=== PATIENT | male | born 1945 | race Caucasian/White ===

== ENCOUNTER → 2016-11-01 | Outpatient (CLI) | payer OTHER | LOC: FIMAGING 09:04 | PROVIDERS: ATTEND Internal Medicine Gastroenterology | DX: R94.5 Abnormal results of liver function studies (principal) ==

== ENCOUNTER → 2017-12-08 | Outpatient (CLI) | payer OTHER | LOC: FIMAGING 10:35 | PROVIDERS: ATTEND Internal Medicine Hematology & Oncology | DX: Z13.820 Encounter for screening for osteoporosis (principal); M81.0 Age-related osteoporosis without current pathological fracture; E03.9 Hypothyroidism, unspecified; Z85.46 Personal history of malignant neoplasm of prostate ==

== ENCOUNTER 2018-03-20 15:49 | Emergency (ER) | payer OTHER ==
[2018-03-20] MEDS ORDERED: VANCOMYCIN 1 GM in NS 250 ML IV ONE (16:35)
[2018-03-20] MEDS ORDERED: CEPHALEXIN 500MG PREPACK#4 BTL TAKEHOME ONE (16:36)
[2018-03-20] MEDS ORDERED: SULFAMET/TMP DS PREPACK#2 BTL TAKEHOME ONE (16:36)
--- NOTE | 2018-03-20 16:41 | EDPHY ---
H & P Stated Complaint: redness and swelling right leg for 6 days-pt. fell Time Seen by Provider: 03/20/18 16:04 HPI/ROS: Chief Complaint: Leg infection HPI: 72-year-old male with a history of CVA in the past is presenting with a leg infection after he sustained an injury 1 week ago. Patient states he fell and sustained a laceration to his right leg. He has had increasing redness and swelling for the last 2 days. 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 No fevers or chills. He does have decreased sensation in that leg secondary to his CVA in the past. His looked at his leg notice significant purulent discharge from the wound and redness yesterday. She states that the leg is still red but does seem improved compared to yesterday. No chest pain or shortness of breath. Denies any other injuries. ROS: 10 systems were reviewed and were negative except those elements noted in the HPI. PMH: CVA, Morris cyst, hypertension, seizure disorder Social History: No smoking, no alcohol, no recreational drug use Family History: non-contributory Physical Exam: Gen: Awake, Alert, No Distress HEENT: Nose: no rhinorrhea Eyes: PERRLA, EOMI Mouth: Moist mucosa Neck: Supple, no JVD Chest: nontender, lungs clear to auscultation Heart: S1, S2 normal, no murmur Abd: Soft, non-tender, no guarding Back: no CVA tenderness, no midline tenderness Ext: Left leg has 1+ edema, right leg is 2+ pitting edema. There is a large abrasion approximately 4 cm vertically over his anterior tibia. There is an area of surrounding erythema approximately 15 cm x 20 cm with the central area of 5 cm x 8 cm being more intense. Is mildly warm to touch. There is a small area of secondary abrasion approximately on the upper lema with mild surrounding erythema approximately 3 cm. There is crusting over the abrasions, no purulent discharge. The erythema is not circumferential. Skin: no rash Neuro: CN II-XII intact, Sensation grossly intact, Strength 5/5 in bilateral upper and lower extremities - Personal History Current Tetanus Diphtheria and Acellular Pertussis (TDAP): Yes Tetanus Vaccine Date: Unknown - Medical/Surgical History Hx Asthma: No Hx Chronic Respiratory Disease: No Hx Diabetes: No Hx Cardiac Disease: No Hx Renal Disease: No Hx Cirrhosis: No Hx Alcoholism: No Hx HIV/AIDS: No Hx Splenectomy or Spleen Trauma: No Other PMH: CVA 2004, R SIDE WEAKNESS, APHASIA, PROSTATE CANCER 2012, BREAST CANCER. hernia repair,hypertension,hypothyroid,seizures,Bakers cyst right leg 2 months ago - Social History Smoking Status: Never smoked Constitutional: Initial Vital Signs Temperature (C) 36.7 C 03/20/18 16:06 Heart Rate 64 03/20/18 16:06 Respiratory Rate 18 03/20/18 16:06 Blood Pressure 140/92 H 03/20/18 16:06 O2 Sat (%) 95 03/20/18 16:06 O2 Delivery Mode Room Air Allergies/Adverse Reactions: No Known Allergies Allergy (Verified 03/20/18 16:05) Home Medications: Medication Instructions Recorded Donepezil HCl [Aricept 5 MG (RX)] 15 mg PO DAILY 03/12/12 Levothyroxine [Synthroid 100 mcg 100 mcg PO DAILY06 03/12/12 (RX)] Pregabalin [Lyrica 50mg (RX)] 100 mg PO HS 03/12/12 Simvastatin [Zocor 20 mg (RX)] 20 mg PO HS 03/12/12 Valsartan [Diovan 160MG (RX)] 160 mg PO DAILY 03/12/12 lamoTRIgine [LamICTAL 100 MG (RX)] 300 mg PO TID 03/12/12 levETIRAcetam [Keppra 250 mg (RX)] 250 mg PO BID 03/12/12 Diazepam 06/05/13 LUPRON DEPOT 03/20/18 Medical Decision Making ED Course/Re-evaluation: 72-year-old male with a wound infection with cellulitis on his right leg. He does not wish to stay in the hospital. His does state that it does look better than it did yesterday without any treatment. Plan will be to give him a single dose of vancomycin here. Will start him on oral Keflex and Bactrim. I am working tomorrow and I have instructed them to return in 24 hr for recheck by me even if it is improving. If the redness spreads outside of the marked area they will return sooner for and admission to the hospital. I think that given the fact that the redness is improving compared to yesterday without treatment this is a reasonable approach at this time. He has chronic swelling in that leg. He has had extensive workup for this within the last 2 months with no evidence of DVT. I do not believe he has a DVT at this time. Will attempt for conservative outpatient treatment but if necessary he will return for hospital admission. Departure - Departure Disposition: Home, Routine, Self-Care Clinical Impression: Wound infection, Cellulitis Condition: Good Instructions: Wound Infection (ED), Cellulitis (ED), Sulfamethoxazole/ Trimethoprim (By mouth), Cephalexin (By mouth) Additional Instructions: Return to the emergency department tomorrow after 3:00 p.m. for wound recheck by Dr. Ceron. Take the Keflex 4 times a day and the Bactrim twice a day. Return to the emergency department sooner if the redness spreads outside of the marked area, for increasing pain, fevers, or any other concerns. Referrals: Lolita Gonsalez MD [Primary Care Provider] - As per Instructions
[2018-03-20 19:11] VITALS: BP 124/75
== END 2018-03-20 18:55 | disposition home or self-care (01) ==
LOC: CED 15:49
DX: L08.9 Local infection of the skin and subcutaneous tissue, unspecified (principal); L03.115 Cellulitis of right lower limb; I10 Essential (primary) hypertension
CPT/HCPCS: 96365; 99284; J3370

== ENCOUNTER 2018-03-21 16:29 | Emergency (ER) | payer OTHER ==
[2018-03-21 16:40] VITALS: BP 149/91
--- NOTE | 2018-03-21 16:41 | EDPHY ---
H & P Time Seen by Provider: 03/21/18 16:37 HPI/ROS: Chief Complaint: Cellulitis check HPI: 72-year-old male that I saw in the emergency department yesterday with cellulitis to his right leg. Patient has a history of CVA in the past. He had a fall week ago and sustained a laceration to his right lema. Ice I am yesterday with a cellulitis. Patient also has a known rogers cyst and swelling in that leg. Patient was given IV antibiotics by me yesterday as been taking Keflex and Bactrim. He states that he feels it is getting much better. No fevers or chills. No pain. ROS: 10 systems were reviewed and were negative except those elements noted in the HPI. PMH: CVA, hypertension, seizure disorder Social History: No smoking, no alcohol, no recreational drug use Family History: non-contributory Physical Exam: General: Awake, alert, no acute distress Right leg: Patient has a healing cellulitis of his right leg. The erythema is decreased significantly compared to yesterday. There is no purulent discharge. Calf continued to be doing swollen with 2+ pitting edema but this is also improved. Capillary refills less than 3 sec. - Personal History Tetanus Vaccine Date: Unknown - Medical/Surgical History Hx Asthma: No Hx Chronic Respiratory Disease: No Hx Diabetes: No Hx Cardiac Disease: No Hx Renal Disease: No Hx Cirrhosis: No Hx Alcoholism: No Hx HIV/AIDS: No Hx Splenectomy or Spleen Trauma: No Other PMH: CVA 2004, R SIDE WEAKNESS, APHASIA, PROSTATE CANCER 2013, BREAST CANCER. hernia repair,hypertension,hypothyroid,seizures,Bakers cyst right leg 2 months ago - Social History Smoking Status: Never smoked Allergies/Adverse Reactions: No Known Allergies Allergy (Verified 03/21/18 16:37) Home Medications: Medication Instructions Recorded Donepezil HCl [Aricept 5 MG (RX)] 15 mg PO DAILY 03/12/12 Levothyroxine [Synthroid 100 mcg 100 mcg PO DAILY06 03/12/12 (RX)] Pregabalin [Lyrica 50mg (RX)] 100 mg PO HS 03/12/12 Simvastatin [Zocor 20 mg (RX)] 20 mg PO HS 03/12/12 Valsartan [Diovan 160MG (RX)] 160 mg PO DAILY 03/12/12 lamoTRIgine [LamICTAL 100 MG (RX)] 300 mg PO TID 03/12/12 levETIRAcetam [Keppra 250 mg (RX)] 250 mg PO BID 03/12/12 Diazepam 06/05/13 LUPRON DEPOT 03/20/18 Cephalexin [Keflex (*)] 500 mg PO Q6H #40 cap 03/21/18 Sulfamethox/Tmp 800/160 mg 1 tab PO BID #20 tab 03/21/18 [Bactrim Ds] Medical Decision Making ED Course/Re-evaluation: 72-year-old male with healing cellulitis. His cellulitis looks significantly improved compared to yesterday. Plan will be to continue with oral Keflex and Bactrim. He will follow up with primary care physician in 2-3 days for recheck. He will return for any concerns. Departure - Departure Disposition: Home, Routine, Self-Care Clinical Impression: Cellulitis Condition: Good Instructions: Cellulitis (ED) Additional Instructions: Please take her full course of antibiotics. Follow up with primary care physician in 2-3 days for recheck. Return to the emergency department for worsening redness, swelling, fevers, chills, pain, or any other concerns. Referrals: Lolita Gonsalez MD [Primary Care Provider] - As per Instructions Prescriptions: Cephalexin [Keflex (*)] 500 mg PO Q6H #40 cap Sulfamethox/Tmp 800/160 mg [Bactrim Ds] 1 tab PO BID #20 tab
== END 2018-03-21 16:48 | disposition home or self-care (01) ==
LOC: CED 16:29
DX: L03.115 Cellulitis of right lower limb (principal); L08.9 Local infection of the skin and subcutaneous tissue, unspecified; I10 Essential (primary) hypertension; E03.9 Hypothyroidism, unspecified; Z86.73 Personal history of transient ischemic attack (TIA), and cerebral infarction without residual deficits; Z85.46 Personal history of malignant neoplasm of prostate; Z85.3 Personal history of malignant neoplasm of breast
CPT/HCPCS: 99284-ER

== ENCOUNTER 2018-04-14 14:33 | Inpatient (IN) | payer OTHER ==
[2018-04-14] MEDS ORDERED: SENNOSIDES/DOCUSATE SODIUM TAB PO PRN (16:03)
[2018-04-14] MEDS ORDERED: MAG HYDROX/AL HYDROX/SIMETH 30 ML UDCUP PO PRN (16:03)
[2018-04-14] MEDS ORDERED: BISACODYL 10 MG SUPP PR PRN (16:03)
[2018-04-14] MEDS ORDERED: METHOCARBAMOL 750 MG TAB PO PRN (16:10)
[2018-04-14] MEDS ORDERED: POLYETHYLENE GLYCOL 3350 17 GM PKT PO PRN (16:10)
[2018-04-14] MEDS ORDERED: PREGABALIN 50 MG CAP PO PRN (16:10)
[2018-04-14] MEDS: CEPHALEXIN 500 MG CAP PO SCH ×2 (16:56→20:58)
[2018-04-14] MEDS: lamoTRIgine 100 MG TAB PO SCH (17:49)
--- NOTE | 2018-04-14 18:56 | GHP ---
[f rep st] HISTORY AND PHYSICAL POSTADMISSION PHYSICIAN EVALUATION AND REHABILITATION TREATMENT PLAN DATE OF ADMISSION: 04/14/2018 TIME OF EVALUATION: 4 p.m. REFERRING FACILITY: [facility]. REFERRING PHYSICIAN: Bhavik Brady MD IMPAIRMENT GROUP: 14.2. DATE OF ONSET: 04/08/2018. CONSULTING PHYSICIAN: Orthopedic Surgery, Plastic Surgery. PRIMARY CARE PHYSICIAN: Lolita Gonsalez MD. Neurologist: Charly Ragsdale MD. Oncologist: Danny Garcia MD. REHABILITATION DIAGNOSIS: Multiple trauma, severely displaced left humeral neck fracture, mildly displaced left greater tuberosity fracture, left zygomaticomaxillary complex fracture, nasal fracture, lateral orbital wall fracture. DATE OF SURGERY: 04/09/2018, shoulder arthroplasty, ORIF facial fractures. HISTORY OF PRESENT ILLNESS: The patient is a 73-year-old originally right- handed, now left-handed gentleman with a remote history of a left CVA, right hemiparesis, ataxia, and subsequent seizure disorder. He was in his usual state of health until 04/08/2018, when at home he fell down 2 steps, landing on his face and left shoulder. He had immediate pain. He was taken to [facility] ER where he was transferred to [facility] for definitive treatment. There was no associated loss of consciousness, headache, nausea, or vomiting. No period of posttraumatic amnesia. He was admitted to [facility], stabilized and brought to the OR for the shoulder arthroplasty and ORIF of the facial fractures on 04/11/2018. Surgery was performed by Bhavik Leigh MD. Acute care hospital course was otherwise uneventful. Multiple studies were performed on day of admission including facial CT showin. Acute fractures of the anterior, medial, and lateral garcia of the left maxillary sinus with associated hemorrhagic fluid within the sinus. 2. Mildly depressed left inferior orbital wall fracture without evidence for inferior rectus muscle entrapment. Associated air tracking into the extraconal space of the left orbit. 3. Mildly displaced fracture of the left lateral orbital wall and nondisplaced fracture of the left side zygomatic arch. 4. Nasal bone fractures with rightward displacement of anterior fragments. Angulation deformity of the posterior aspect of the nasal septum. Could be either acute fracture or developmental. 5. No evidence for injury to the soft tissue structures of the orbits. 6. Moderate cerebral atrophy and large area of chronic volume loss in the left temporal lobe. Right-sided ventricular shunt catheter noted. Head CT without contrast 04/08/2018 showed: 1. No acute intracranial abnormality. 2. Right parietooccipital ventricular peritoneal shunt catheter. No ventriculomegaly. 3. Old left parietotemporal injury. Probably old area of infarction. 4. Extensive multiple facial fractures as above. Chest x-ray 04/08/2018: No acute disease. CTA head and neck 04/08/2018: 1. Unremarkable intracranial CT angiogram. 2. Low-grade extracranial atherosclerotic disease without evidence of hemodynamically significant stenosis. 3. Multiple left-sided facial fractures. 4. Remote left temporoparietal injury. 5. Right parietooccipital approach. Ventricular peritoneal shunt. Cervical spine 04/08/2018: Negative for fracture, subluxation. Multilevel degenerative changes. Pelvis 04/08/2018: Negative for fracture Screening bilateral lower extremity Doppler ultrasound: Negative for DVT. On admission, left shoulder films showed very dislocated left humeral neck and mildly dislocated left greater tuberosity. Chest x-ray followup to 04/13/2018, showed no evidence of consolidation, pneumonia. Trace left pleural fluid. No pneumothorax. Normal cardiomediastinal silhouette. Postop left shoulder 04/10/2018, showed status post glenohumeral arthroplasty, hardware in good position, alignment is anatomical. PRECAUTIONS: Fall risk, seizure risk, ortho risk, DVT. ACTIVE COMORBIDITIES: Tier 3: Right hemiparesis. PAST MEDICAL HISTORY: Left hemisphere CVA in 2004. A few months later he had a 2nd event. This was complicated and required ventriculoperitoneal shunting. He developed seizure disorder. He is followed by Dr. Ragsdale, Neurology. Hypothyroidism, dyslipidemia, glaucoma, cataract, bilateral breast cancer. More recent diagnosis: Prostate cancer followed by Dr. Garcia, PAST SURGICAL HISTORY: Remote hernia repair, ventriculoperitoneal shunt in 2004 , bilateral mastectomy. PREHOSPITAL MEDICATIONS: Atorvastatin 10 mg p.o. daily, brimonidine 0.2% 1 drop each eye b.i.d., Lamictal 300 mg p.o. twice a day with meals, 150 mg p.o. at noon, latanoprost 0.005% 1 drop each eye q.h.s., levetiracetam 1750 mg p.o. b.i.d., levothyroxine 100 mcg p.o. daily, Lyrica 50 mg p.o. q.h.s. ADMISSION MEDICATIONS: Continue all hospital medications as described above, and, in addition, acetaminophen 650 mg p.o. q.4 hours p.r.n., Dulcolax suppository p.r.n., Keflex 500 mg p.o. q.6 hours, recommended on 04/12 for 6 more days, Lovenox 30 mg subcu b.i.d., magnesium hydroxide 30 cc p.o. q.6 hours p.r.n., methocarbamol 750 mg p.o. q.8 hours p.r.n., oxycodone IR 5-10 mg p.o. q.4 hours p.r.n., polyethylene glycol 17 g p.o. daily p.r.n., Senokot 1 p.o. daily. ALLERGIES: NKDA. FAMILY HISTORY: Noncontributory. PSYCHOSOCIAL HISTORY: The patient is , lives with his Laura in [place]. 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 Negative history of tobacco or ETOH. REVIEW OF SYSTEMS: A 14-point review negative. Pertinent negatives include denying headache. There is no history of loss of consciousness, [employer], and he has full recall of the accident. HEENT: No change in hearing, tinnitus, otorrhea. No obvious visual changes, blurred or double vision, trouble tracking. No eye pain, eye strain. No change in sense of smell or taste. No rhinorrhea. No dysphagia. RESPIRATORY: No chest pain, shortness of breath, cough. GI: Negative. No reported seizures throughout his hospitalization. Sleep has been variable. Appetite is poor. Pain is well controlled. Current function: Consistent with preadmission report. EXAMINATION: VITAL SIGNS: BP 109/68, P 70, R 18, O2 sat 94%, T36.6. GENERAL: The patient is well-developed, well-nourished and quite pleasant 73- year-old gentleman, in no acute distress. He currently denies any significant pain. He is oriented x3. Has a mild to moderate asphasia and moderate dysarthria, but is intelligible. He is in good spirits, good sense of humor. Insight and higher level reasoning are grossly intact. HEENT: Clear evidence of trauma with residual ecchymosis and mild swelling greater on the left than the right. Some of that likely postoperative. He has a nasal splint in place. PERRLA. L sclera discolored. Extraocular movements are not full, but saccadic and pursuit movements are smooth. No gross field cuts. Facies grossly asymmetric with a mild left facial droop, query old versus new. NECK: Full range of motion. CHEST: Clear to auscultation at the bases. CARDIOVASCULAR: Regular rhythm and rate. ABDOMEN: Nondistended and nondistended. Normoactive bowel sounds. Bruising consistent with subq anticoagulants. SKIN: Warm, dry. Posttraumatic changes in the face and left shoulder. Left hand is cold relative to the right hand, but neurovascular status otherwise intact. He has abrasions on the right calf consistent with recent history of cellulitis status post fall, mostly resolved. MUSCULOSKELETAL: Left upper extremity in a postsurgical sling/shoulder immobilizer. Surgical dressing remains in place. Some associated ecchymosis. Very restricted range of motion. NEUROLOGIC: Right hemiparesis with primary ataxia greater than strenth deficits. Strength testing is in the 4/5 range. Distal motor sensory, vascular intact in the left hand, though the hand is somewhat cold and edematous. IMPRESSION: 1. Multiple trauma secondary to fall at home 04/08/2018. 2. Complex, severely displaced left humeral neck fracture, now status post left glenohumeral arthroplasty. Postop films show good anatomical alignment and hardware placement. Current pain tolerance good. Activity markedly limited. 3. Remote history of left hemisphere cerebrovascular accident, left ventriculoperitoneal shunt, right hemiparesis, altered mobility. 4. Post stroke aphasia, dysarthria, mild to moderate cognitive impairment including memory deficits. Considered at baseline. 5. Complex left facial and nasal fractures, orbital fractures. No complications. Status post ORIF. 6. Pain management: Continue p.r.n. narcotic, Tylenol, muscle relaxants. 7. Deep venous thrombosis prophylaxis. Moderate to high risk. Continue enoxaparin 30 mg b.i.d. 8. Bowel and bladder issues: None currently. Monitor for narcotic-induced constipation. 9. Skin: He is scheduled for a followup with orthopedist this week. Monitor for skin healing, wound healing, intact neurovascular status status/post shoulder arthroplasty. 10. Glaucoma: Continue current medication. 11. Dyslipidemia: Continue atorvastatin. 12. Hypothyroidism: Continue levothyroxine. 13. Cataract. 14. Prostate cancer: Continue Lupron therapy per Dr. Garcia. 15. Seizure disorder: Continue Keppra and Lamictal as prescribed. In addition , patient takes p.r.n. liquid Dilantin at initial suspicion of seizure prodrome. Consider consulting Dr. Ragsdale for evaluation. 16. Breast cancer status post bilateral mastectomy. No current issues. PLAN: Admit to inpatient rehab, initiate multidisciplinary therapies, RN, PT/OT , speech, social work. Anticipated length of stay7-14 days, with emphasis on discharge to home once adequate mobility, self-care, family education, pain management, etc, are achieved. /[id number]/MODL MTDD
[2018-04-14] MEDS: ACETAMINOPHEN 325 MG TAB PO PRN (20:57)
[2018-04-14] MEDS: levETIRAcetam 500 MG TAB PO SCH (20:58)
[2018-04-14] MEDS: BRIMONIDINE 0.2% 5 ML OPHT.BTL EACHEYE SCH (20:58)
[2018-04-14] MEDS: LATANOPROST 0.005% 2.5 ML OPHT DROPS EACHEYE SCH (20:59)
[2018-04-14] MEDS: ENOXAPARIN 30 MG/0.3 ML SYR SC SCH (20:59)
[2018-04-14] MEDS: CHLORHEXIDINE GLUCONATE 15 ML UDL PO SCH (22:36)
[2018-04-14] MEDS: levETIRAcetam 250 MG TAB PO SCH (22:37)
[2018-04-15] MEDS: LEVOTHYROXINE 100 MCG TAB PO SCH (04:57)
[2018-04-15] MEDS: CEPHALEXIN 500 MG CAP PO SCH ×4 (04:57→21:24)
[2018-04-15] MEDS: ATORVASTATIN CALCIUM 10 MG TAB PO SCH (08:26)
[2018-04-15] MEDS: lamoTRIgine 100 MG TAB PO SCH ×3 (08:26→17:30)
[2018-04-15] MEDS: levETIRAcetam 250 MG TAB PO SCH ×2 (08:26→20:37)
[2018-04-15] MEDS: levETIRAcetam 500 MG TAB PO SCH ×2 (08:26→20:37)
[2018-04-15] MEDS: ENOXAPARIN 30 MG/0.3 ML SYR SC SCH ×2 (08:26→20:37)
[2018-04-15] MEDS: BRIMONIDINE 0.2% 5 ML OPHT.BTL EACHEYE SCH ×2 (08:27→21:24)
[2018-04-15] MEDS: SENNOSIDES/DOCUSATE SODIUM TAB PO SCH (08:27)
[2018-04-15] MEDS: CHLORHEXIDINE GLUCONATE 15 ML UDL PO SCH ×2 (08:27→20:36)
[2018-04-15] MEDS ORDERED: DIAZEPAM 1 MG/ML PO PRN (12:21)
--- NOTE | 2018-04-15 12:36 | SOAPPROG ---
SOAP Progress Note Assessment/Plan: Assessment: 73 YO gentleman with multiple trauma 1. Multiple trauma secondary to fall at home 04/08/2018. 2. Complex, severely displaced left humeral neck fracture, now status post left glenohumeral arthroplasty. Postop films show good anatomical alignment and hardware placement. Current pain tolerance good. Activity markedly limited. Adequate pain control. Cont with immobilizer. Cont PT/OT eval and treat with goal of increasing mobility, capacity for self cares, assistive devices, and family training. 3. Remote history of left hemisphere cerebrovascular accident, left ventriculoperitoneal shunt, right hemiparesis, altered mobility. 4. Post stroke aphasia, dysarthria, mild to moderate cognitive impairment including memory deficits. Considered at baseline. 5. Complex left facial trauma (Zygomaticamaxillary, Nasal and orbital Fx's) No complications. Status post ORIF. 6. Pain management: adequate control. Continue p.r.n. narcotic, Tylenol, muscle relaxants. 7. Deep venous thrombosis prophylaxis. Moderate to high risk. Continue enoxaparin 30 mg b.i.d. 8. Bowel and bladder issues: None currently. Monitor for narcotic-induced constipation. 9. Skin: He is scheduled for a followup with orthopedist this week. Monitor for skin healing, wound healing, intact neurovascular status status/post shoulder arthroplasty. 10. Glaucoma: Continue current medication. 11. Dyslipidemia: Continue atorvastatin. 12. Hypothyroidism: Continue levothyroxine. 13. Cataract. 14. Prostate cancer: Continue Lupron therapy per Dr. Garcia. 15. Seizure disorder: Continue Keppra and Lamictal as prescribed. In addition , patient takes p.r.n. liquid Dilantin at initial suspicion of seizure prodrome. Consider consulting Dr. Ragsdale for evaluation. 16. Breast cancer status post bilateral mastectomy. No current issues. 17. Sleep: problematic last night 2/2 inability to turn (neither shoulder can assist in bed mobility). Will request the nurses turn him Q 2hrs. PLAN: Cont multidisciplinary therapies, RN, PT/OT, speech, social work. Anticipated length of stay7-14 days, with emphasis on discharge to home once adequate mobility, self-care, family education, pain management, etc, are achieved. 04/15/18 12:42 Subjective: IN good spirits Slept poorly last night PRN medication requested by turned out to be Diazepam liquid, not Dilantin. This is non formulary, but will be made available to pt, 1-2 cc PRN onset of seizure prodrome/anxiety NO F/C/CP/SOB/N/V/D/C Objective: Vital Signs Temp Pulse Resp BP Pulse Ox 36.5 C 74 18 124/76 H 94 04/14/18 20:00 04/15/18 05:10 04/15/18 05:10 04/15/18 05:10 04/15/18 05:10 04/14/18 04/15/18 04/16/18 05:59 05:59 05:59 Intake Total 440 100 Output Total 1025 Balance -585 100 Physical Exam - Physical Exam General Appearance: alert, no apparent distress Neck: supple Respiratory: lungs clear Cardiac/Chest: regular rate, rhythm Abdomen: normal bowel sounds, soft Skin: normal color, warm/dry (L hand still cooler) Extremities: swelling (L hand, motor sensory intact), No pedal edema, No calf tenderness Neuro/Psych: alert, normal mood/affect, facial droop, motor weakness, sensory deficit, cognition abnormalities, speech abnormalities, other (no acute changes) ICD10 Worksheet Patient Problems: Problems Problem Status Onset Essential hypertension Active Seizure disorder Active
[2018-04-15] MEDS ORDERED: ZOLPIDEM TARTRATE 5 MG TAB PO PRN (14:22)
[2018-04-15] MEDS: ACETAMINOPHEN 325 MG TAB PO PRN (21:23)
[2018-04-15] MEDS: LATANOPROST 0.005% 2.5 ML OPHT DROPS EACHEYE SCH (21:25)
[2018-04-16] MEDS: ACETAMINOPHEN 325 MG TAB PO PRN ×2 (03:16→22:06)
[2018-04-16] MEDS: LEVOTHYROXINE 100 MCG TAB PO SCH (05:01)
[2018-04-16] MEDS: CEPHALEXIN 500 MG CAP PO SCH ×4 (05:02→22:06)
[2018-04-16] MEDS: levETIRAcetam 500 MG TAB PO SCH ×2 (09:01→22:06)
[2018-04-16] MEDS: ATORVASTATIN CALCIUM 10 MG TAB PO SCH (09:01)
[2018-04-16] MEDS: levETIRAcetam 250 MG TAB PO SCH ×2 (09:01→22:06)
[2018-04-16] MEDS: ENOXAPARIN 30 MG/0.3 ML SYR SC SCH ×2 (09:01→22:07)
[2018-04-16] MEDS: SENNOSIDES/DOCUSATE SODIUM TAB PO SCH (09:01)
[2018-04-16] MEDS: lamoTRIgine 100 MG TAB PO SCH ×3 (09:01→16:47)
[2018-04-16] MEDS: CHLORHEXIDINE GLUCONATE 15 ML UDL PO SCH ×2 (09:01→22:07)
[2018-04-16] MEDS: BRIMONIDINE 0.2% 5 ML OPHT.BTL EACHEYE SCH ×2 (09:02→22:07)
--- NOTE | 2018-04-16 13:39 | SOAPPROG ---
SOAP Progress Note Assessment/Plan: Assessment: 73 YO gentleman with multiple trauma secondary to fall at home 04/08/2018. Complex, severely displaced left humeral neck fracture, now status post left glenohumeral arthroplasty. Postop films show good anatomical alignment and hardware placement. Current pain tolerance good. Activity markedly limited. Adequate pain control. Cont with immobilizer. * Cont PT/OT eval and treat with goal of increasing mobility, capacity for self cares, assistive devices, and family training. Remote history of left hemisphere cerebrovascular accident, left ventriculoperitoneal shunt, right hemiparesis, altered mobility. Post stroke aphasia, dysarthria, mild to moderate cognitive impairment including memory deficits. Considered at baseline. Complex left facial trauma (Zygomaticamaxillary, Nasal and orbital Fx's) No complications. Status post ORIF. * Sutures and external nasal splint to be removed on 04/19/2018. Pain management: adequate control. Continue p.r.n. opiate, Tylenol, muscle relaxants. * Has not been using oxycodone or methocarbamol. Bowel and bladder issues: None currently. Monitor for opiate-induced constipation. Skin: He is scheduled for a followup with orthopedist this week. Monitor for skin healing, wound healing, intact neurovascular status status/post shoulder arthroplasty. Glaucoma: Continue current medication. Dyslipidemia: Continue atorvastatin. Hypothyroidism: Continue levothyroxine. Cataract. Prostate cancer: Continue Lupron therapy per Dr. Garcia. Seizure disorder: Continue Keppra and Lamictal as prescribed. In addition, patient takes p.r.n. liquid Dilantin at initial suspicion of seizure prodrome. Consider consulting Dr. Ragsdale for evaluation. Breast cancer status post bilateral mastectomy. No current issues. Possible osteoporosis. He reports he has been receiving IV bone density medication (possibly zoledronic acid close) every [address] Garcia. Consider referral to brazer crawler torch after discharge for additional medications. Deep venous thrombosis prophylaxis. Moderate to high risk. Continue enoxaparin 30 mg b.i.d. DISPOSITION: Anticipated length of stay7-14 days, with emphasis on discharge to home once adequate mobility, self-care, family education, pain management, etc, are achieved. 04/16/18 13:33 Subjective: No complaints. Minimal pain, treated with acetaminophen. Able to breathe through nose. No cough or dyspnea, no fevers or chills. Sleeping well. Objective: Vital Signs Temp Pulse Resp BP Pulse Ox 36.6 C 71 16 112/76 97 04/16/18 07:58 04/16/18 07:58 04/16/18 07:58 04/16/18 07:58 04/16/18 07:58 04/15/18 04/16/18 04/17/18 05:59 05:59 05:59 Intake Total 440 980 480 Output Total 1025 250 Balance -585 730 480 Physical Exam - Physical Exam General Appearance: WD/WN, alert, no apparent distress Respiratory: normal breath sounds, No crackles, No rhonchi, No wheezing Cardiac/Chest: regular rate, rhythm, No edema, No diastolic murmur, No systolic murmur Extremities: other (Left arm in sling and immobilizer holding arm in elbow flexion on pad between arm and chest.) Neuro/Psych: alert, normal mood/affect, oriented x 3 ICD10 Worksheet Patient Problems: Problems Problem Status Onset Essential hypertension Active Seizure disorder Active
--- NOTE | 2018-04-16 14:38 | PDOREHIP ---
Admission [facility] - Admission - 3 Day Assessment Period Admission Date/Day 1: 04/14/18 Day 2: 04/15/18 Day 3: 04/16/18 - Active Diagnoses Comorbidities and Co-existing Conditions at Admission: 52157. None of the Above - Skin Conditions Unhealed Pressure Ulcer (1 or more/Stage 1 or >)-Admission: 0. No # Stage 1 Pressure Ulcers-Admission: 0 # Stage 2 Pressure Ulcers-Admission: 0 # Stage 3 Pressure Ulcers-Admission: 0 # Stage 4 Pressure Ulcers-Admission: 0 # Unstageable Pressure Ulcers (Non-remove Dress)-Admission: 0 # Unstageable Pressure Ulcers (Slough/Eschar)-Admission: 0 # Unstageable Pressure Ulcers (Deep Tissue Injury)-Admission: 0
[2018-04-16] MEDS: oxyCODONE IR 5 MG TAB PO PRN (22:06)
[2018-04-16] MEDS: LATANOPROST 0.005% 2.5 ML OPHT DROPS EACHEYE SCH (22:08)
[2018-04-17] MEDS: LEVOTHYROXINE 100 MCG TAB PO SCH (06:08)
[2018-04-17] MEDS: CEPHALEXIN 500 MG CAP PO SCH ×4 (06:08→22:06)
[2018-04-17] MEDS: CHLORHEXIDINE GLUCONATE 15 ML UDL PO SCH ×2 (08:55→22:32)
[2018-04-17] MEDS: ENOXAPARIN 30 MG/0.3 ML SYR SC SCH ×2 (08:55→22:07)
[2018-04-17] MEDS: ATORVASTATIN CALCIUM 10 MG TAB PO SCH (08:56)
[2018-04-17] MEDS: levETIRAcetam 250 MG TAB PO SCH ×2 (08:56→22:06)
[2018-04-17] MEDS: lamoTRIgine 100 MG TAB PO SCH ×3 (08:56→17:08)
[2018-04-17] MEDS: SENNOSIDES/DOCUSATE SODIUM TAB PO SCH (08:56)
[2018-04-17] MEDS: levETIRAcetam 500 MG TAB PO SCH ×2 (08:56→22:06)
[2018-04-17] MEDS: BRIMONIDINE 0.2% 5 ML OPHT.BTL EACHEYE SCH ×2 (08:57→22:17)
--- NOTE | 2018-04-17 10:16 | SOAPPROG ---
SOAP Progress Note Assessment/Plan: 73-year-old male with multiple trauma due to fall at home on 04/08/2018, impairments in mobility and self-care Today's update: Impaired left eye closing likely associated with nerve injury associated with his left facial trauma, he should follow up with his surgeon after discharge. Adding Lacri-Lube for eye protection and lubrication at night. Has ongoing spasticity, 3 on the modified Tammi scale in the right upper elbow flexors and extensor, no additional treatment at this point unless approved to be functionally impairing. Not painful. Working well with therapies, making progress. No change to the rehabilitation plan. In addition , to clarify prior notes, he takes p.r.n. Diazepam, not Dilantin, if he senses a seizure aura. He describes as are a as like tingling, but otherwise hard to describe. His last seizure was reportedly over 5 years ago. He takes p.r.n. Diazepam approximately twice per month. Additional issues reviewed without change today include pre-existing post stroke aphasia, dysarthria, mild to moderate cognitive impairments including memory deficits, at baseline per report. Pain management, bowel and bladder issues, skin issues, glaucoma, dyslipidemia, hypothyroidism, cataract, history of prostate and breast cancer, possible osteoporosis, DVT prophylaxis. A total of 25 min was spent on the floor in the care of the patient, the majority of which was spent in counseling and coordination of care regarding seizure prevention, prior stroke, rehabilitation goals. 04/17/18 10:07 Subjective: Chief complaint: Left eye dryness No acute events overnight. Patient denies any new shortness of breath or chest pain, no new numbness, tingling, or weakness. He endorses difficulty closing his left eye since the fall, he is okay with starting something to protect the cornea from injury and dryness. He feels like therapy is going well, feels like he is making progress. Denies any pain. Endorses that he has longstanding spasticity on the right side from his prior stroke, not painful or functionally impairing. Endorses longstanding history of right-sided weakness and sensory changes from the stroke. Objective: Vital Signs Temp Pulse Resp BP Pulse Ox 36.7 C 74 16 106/71 94 04/17/18 08:00 04/17/18 08:00 04/17/18 08:00 04/17/18 08:00 04/17/18 08:00 04/16/18 04/17/18 04/18/18 05:59 05:59 05:59 Intake Total 980 680 Output Total 250 350 Balance 730 330 Physical Exam - Physical Exam General Appearance: WD/WN, alert, no apparent distress, cachetic EENT: other (Left eye incompletely closing without extra effort, left-sided facial ecchymoses and wound healing), No scleral icterus (R), No scleral icterus (L) Respiratory: No respiratory distress, No accessory muscle use Cardiac/Chest: normal peripheral pulses, regular rate, rhythm, No edema Skin: normal color, warm/dry, No cyanosis, No diaphoresis Extremities: other (Left arm in a immobilizer sling, full range of motion in the right arm with spasticity 3 on the modified Tammi scale in the elbow flexor and extensor. Ecchymoses in the left arm) Neuro/Psych: alert, normal mood/affect, motor weakness (Right-sided sensory motor deficits), sensory deficit, other (Dysarthric speech, 95% intelligible) ICD10 Worksheet Patient Problems: Problems Problem Status Onset Essential hypertension Active Seizure disorder Active
[2018-04-17] MEDS: PETROLAT,WHT/MIN OIL/SOD CHL 3.5 GM OPHT.OINT LEFTEYE SCH (22:07)
[2018-04-17] MEDS: ACETAMINOPHEN 325 MG TAB PO PRN (22:11)
[2018-04-17] MEDS: oxyCODONE IR 5 MG TAB PO PRN (22:11)
[2018-04-17] MEDS: LATANOPROST 0.005% 2.5 ML OPHT DROPS EACHEYE SCH (22:17)
[2018-04-18] MEDS: CEPHALEXIN 500 MG CAP PO SCH ×2 (05:02→08:54)
[2018-04-18] MEDS: LEVOTHYROXINE 100 MCG TAB PO SCH (05:02)
[2018-04-18] MEDS: lamoTRIgine 100 MG TAB PO SCH ×3 (08:54→17:22)
[2018-04-18] MEDS: CHLORHEXIDINE GLUCONATE 15 ML UDL PO SCH ×2 (08:54→20:38)
[2018-04-18] MEDS: levETIRAcetam 500 MG TAB PO SCH ×2 (08:54→20:37)
[2018-04-18] MEDS: ATORVASTATIN CALCIUM 10 MG TAB PO SCH (08:54)
[2018-04-18] MEDS: ENOXAPARIN 30 MG/0.3 ML SYR SC SCH ×2 (08:54→20:38)
[2018-04-18] MEDS: SENNOSIDES/DOCUSATE SODIUM TAB PO SCH (08:54)
[2018-04-18] MEDS: levETIRAcetam 250 MG TAB PO SCH ×2 (08:54→20:37)
[2018-04-18] MEDS: BRIMONIDINE 0.2% 5 ML OPHT.BTL EACHEYE SCH ×2 (08:55→22:44)
--- NOTE | 2018-04-18 09:56 | SOAPPROG ---
SOAP Progress Note Assessment/Plan: Assessment: 73 YO gentleman with multiple trauma secondary to fall at home 04/08/2018. Has remote history of left hemisphere cerebrovascular accident, left ventriculoperitoneal shunt, right hemiparesis, altered mobility. Complex, severely displaced left humeral neck fracture, now status post left glenohumeral arthroplasty. Postop films show good anatomical alignment and hardware placement. Current pain tolerance good. Activity markedly limited. Adequate pain control. Continue left arm immobilizer. * Initial FIM 55 on 04/17/2018. Min A bed mobility. Transfers CGA/min A. Walks short distances contact guard assist to minimal assist. No device used for transfers or ambulation. Self-propelled wheelchair 50 ft with standby assist. Grooming and hygiene required moderate assist. He has to relearn use of his right hand for ADLs. Upper body and lower body dressing required maximal assist. Bath transfer required moderate assist and bathing required maximal assist. Toileting required maximal assist for clothing management. * Continue PT and OT Post stroke aphasia, dysarthria, mild to moderate cognitive impairment including memory deficits. Considered at baseline. 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 Complex left facial trauma (Zygomaticomaxillary, Nasal and orbital Fx's) No complications. Status post ORIF. * Sutures and external nasal splint to be removed on 04/19/2018. Internal splint to be removed by ENT in followup, currently scheduled for 04/25/2018. Pain management: adequate control. Continue p.r.n. opiate, Tylenol, muscle relaxants. * Has not been using methocarbamol. Using oxycodone at HS x2 nights. Bowel and bladder issues: None currently. Monitor for opiate-induced constipation. Glaucoma: Continue current medication. Dyslipidemia: Continue atorvastatin. Hypothyroidism: Continue levothyroxine. Cataract. Prostate cancer: Continue Lupron therapy per Dr. Garcia. Seizure disorder: Continue Keppra and Lamictal as prescribed. In addition, patient takes p.r.n. liquid Dilantin at initial suspicion of seizure prodrome. Consider consulting Dr. Ragsdale for evaluation. Breast cancer status post bilateral mastectomy. No current issues. Possible osteoporosis. He reports he has been receiving IV bone density medication (possibly zoledronic acid close) every [address] Garcia. Consider referral to truck body builder after discharge for additional medications. Deep venous thrombosis prophylaxis. Moderate to high risk. Continue enoxaparin 30 mg b.i.d. DISPOSITION: Tentative discharge date set for 04/27/2018. He will discharge home with his and with help from a local son and possibly plasterer helper as well. FOLLOW-UP: He is to follow up with ENT on 04/25/2018 and with orthopedic surgery on the same date. 04/18/18 14:37 Subjective: No complaints. Sleeping well. Not in pain. No cough or dyspnea, no fevers or chills. Denies left eye irritation. Objective: Vital Signs Temp Pulse Resp BP Pulse Ox 36.5 C 65 16 106/75 93 04/18/18 05:54 04/18/18 05:54 04/18/18 05:54 04/18/18 05:54 04/18/18 05:54 04/17/18 04/18/18 04/19/18 05:59 05:59 05:59 Intake Total 680 700 240 Output Total 350 Balance 330 700 240 Physical Exam - Physical Exam General Appearance: WD/WN, alert, no apparent distress EENT: other (Able to close left eye. No scleral erythema.) Respiratory: normal breath sounds, No crackles, No rhonchi, No wheezing Cardiac/Chest: regular rate, rhythm, No edema, No diastolic murmur, No systolic murmur Skin: normal color, warm/dry Neuro/Psych: alert, normal mood/affect ICD10 Worksheet Patient Problems: Problems Problem Status Onset Essential hypertension Active Seizure disorder Active
[2018-04-18] MEDS: PETROLAT,WHT/MIN OIL/SOD CHL 3.5 GM OPHT.OINT LEFTEYE SCH (22:44)
[2018-04-18] MEDS: LATANOPROST 0.005% 2.5 ML OPHT DROPS EACHEYE SCH (22:44)
[2018-04-19] MEDS: LEVOTHYROXINE 100 MCG TAB PO SCH (05:59)
[2018-04-19] MEDS: levETIRAcetam 500 MG TAB PO SCH ×2 (10:10→21:01)
[2018-04-19] MEDS: levETIRAcetam 250 MG TAB PO SCH ×2 (10:10→21:01)
[2018-04-19] MEDS: ATORVASTATIN CALCIUM 10 MG TAB PO SCH (10:10)
[2018-04-19] MEDS: lamoTRIgine 100 MG TAB PO SCH ×3 (10:11→18:10)
[2018-04-19] MEDS: CHLORHEXIDINE GLUCONATE 15 ML UDL PO SCH ×2 (10:11→21:02)
[2018-04-19] MEDS: ENOXAPARIN 30 MG/0.3 ML SYR SC SCH ×2 (10:11→21:02)
[2018-04-19] MEDS: SENNOSIDES/DOCUSATE SODIUM TAB PO SCH (10:16)
[2018-04-19] MEDS: BRIMONIDINE 0.2% 5 ML OPHT.BTL EACHEYE SCH ×2 (10:18→21:03)
--- NOTE | 2018-04-19 13:40 | SOAPPROG ---
SOAP Progress Note Assessment/Plan: 73-year-old male with multiple trauma due to fall at home on 04/08/2018, impairments in mobility and self-care Today's update: Rehabilitation going well, continue rehabilitation plan. Left eye comfort is much improved with protective eye lubricant. Confirmed that sutures are okay to remove on the face with the exception of suture inside the nostril which should remain in place until the . Otherwise he is participating in rehabilitation, making slow progress, unclear if he will be able to discharge home with family and considering alternatives. Social work is working closely with family and patient. Additional issues reviewed without change today include pre-existing post stroke aphasia, dysarthria, mild to moderate cognitive impairments including memory deficits, at baseline per report. Pain management, bowel and bladder issues, skin issues, glaucoma, dyslipidemia, hypothyroidism, cataract, history of prostate and breast cancer, possible osteoporosis, DVT prophylaxis. A total of 25 min was spent on the floor in the care of the patient, the majority of which was spent in counseling and coordination of care regarding seizure prevention, prior stroke, rehabilitation goals. 04/17/18 10:07 04/19/18 13:37 Subjective: Chief complaint: Sutures No acute events overnight. Patient denies any new shortness of breath or chest pain, no new numbness, tingling, or weakness. Patient endorses that he believes the sutures are rated, today from his memory, looking forward to getting them out. He feels rehabilitation is going well, no pain concerns, no new issues otherwise. Objective: Vital Signs Temp Pulse Resp BP Pulse Ox 36.8 C 64 16 119/75 93 04/19/18 05:55 04/19/18 05:55 04/19/18 05:55 04/19/18 05:55 04/19/18 05:55 04/18/18 04/19/18 04/20/18 05:59 05:59 05:59 Intake Total 700 798 Balance 700 798 Physical Exam - Physical Exam General Appearance: WD/WN, alert, no apparent distress EENT: other (Left eye incompletely closing, appears moist. Sutured incisions on the face appeared to be healing well, no discharge.), No scleral icterus (R) , No scleral icterus (L) Respiratory: No respiratory distress, No accessory muscle use Cardiac/Chest: normal peripheral pulses, regular rate, rhythm Abdomen: No distended Skin: normal color, warm/dry, other (Multiple areas of ecchymoses status post fall), No cyanosis, No diaphoresis Extremities: No pedal edema Neuro/Psych: alert, normal mood/affect, other (Baseline dysarthric speech and right-sided hemiparesis) ICD10 Worksheet Patient Problems: Problems Problem Status Onset Essential hypertension Active Seizure disorder Active
[2018-04-19] MEDS: LATANOPROST 0.005% 2.5 ML OPHT DROPS EACHEYE SCH (21:02)
[2018-04-19] MEDS: PETROLAT,WHT/MIN OIL/SOD CHL 3.5 GM OPHT.OINT LEFTEYE SCH (21:02)
[2018-04-19] MEDS: ACETAMINOPHEN 325 MG TAB PO PRN (22:30)
[2018-04-20] MEDS: LEVOTHYROXINE 100 MCG TAB PO SCH (05:36)
[2018-04-20] MEDS: lamoTRIgine 100 MG TAB PO SCH ×3 (08:24→18:08)
[2018-04-20] MEDS: SENNOSIDES/DOCUSATE SODIUM TAB PO SCH (08:24)
[2018-04-20] MEDS: levETIRAcetam 250 MG TAB PO SCH ×2 (08:24→22:05)
[2018-04-20] MEDS: levETIRAcetam 500 MG TAB PO SCH ×2 (08:24→22:04)
[2018-04-20] MEDS: ATORVASTATIN CALCIUM 10 MG TAB PO SCH (08:24)
[2018-04-20] MEDS: ENOXAPARIN 30 MG/0.3 ML SYR SC SCH ×2 (08:25→22:05)
[2018-04-20] MEDS: CHLORHEXIDINE GLUCONATE 15 ML UDL PO SCH ×2 (10:03→22:05)
[2018-04-20] MEDS: BRIMONIDINE 0.2% 5 ML OPHT.BTL EACHEYE SCH ×2 (10:03→22:06)
--- NOTE | 2018-04-20 11:50 | SOAPPROG ---
SOAP Progress Note Assessment/Plan: Assessment: 73 YO gentleman with multiple trauma secondary to fall at home 04/08/2018. Has remote history of left hemisphere cerebrovascular accident, left ventriculoperitoneal shunt, right hemiparesis, altered mobility. Complex, severely displaced left humeral neck fracture, now status post left glenohumeral arthroplasty. Postop films show good anatomical alignment and hardware placement. Current pain tolerance good. Activity markedly limited. Adequate pain control. Continue left arm immobilizer. * Initial FIM 55 on 04/17/2018. Min A bed mobility. Transfers CGA/min A. Walks short distances contact guard assist to minimal assist. No device used for transfers or ambulation. Self-propelled wheelchair 50 ft with standby assist. Grooming and hygiene required moderate assist. He has to relearn use of his right hand for ADLs. Upper body and lower body dressing required maximal assist. Bath transfer required moderate assist and bathing required maximal assist. Toileting required maximal assist for clothing management. * Continue PT and OT Post stroke aphasia, dysarthria, mild to moderate cognitive impairment including memory deficits. Considered at baseline. 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 Complex left facial trauma (Zygomaticomaxillary, Nasal and orbital Fx's) No complications. Status post ORIF. * Sutures and external nasal splint removed on 04/19/2018. Internal splint to be removed by ENT in followup, currently scheduled for 04/25/2018. Pain management: adequate control. Continue p.r.n. opiate, Tylenol, muscle relaxants. * Has not been using methocarbamol. Using oxycodone at HS x2 nights. Bowel and bladder issues: None currently. Monitor for opiate-induced constipation. Glaucoma: Continue current medication. Dyslipidemia: Continue atorvastatin. Hypothyroidism: Continue levothyroxine. Cataract. Prostate cancer: Continue Lupron therapy per Dr. Garcia. Seizure disorder: Continue Keppra and Lamictal as prescribed. In addition, patient takes p.r.n. liquid diazepam at initial suspicion of seizure prodrome. Breast cancer status post bilateral mastectomy. No current issues. Possible osteoporosis. He reports he has been receiving IV bone density medication (possibly zoledronic acid close) every [address] Garcia. Consider referral to senior client advisor after discharge for additional medications. Deep venous thrombosis prophylaxis. Moderate to high risk. Mobility is progressing but he is not yet walking greater than 150 ft, as of 04/20/2018. Continue enoxaparin 30 mg b.i.d. DISPOSITION: Tentative discharge date set for 04/27/2018. He will discharge home with his and with help from a local son and possibly recorder helper gravity prospecting as well. FOLLOW-UP: He is to follow up with ENT on 04/25/2018 and with orthopedic surgery on the same date. 04/20/18 11:24 Subjective: No complaints. He says the room was too warm last night, which interfered with sleep. He is not in pain. No fevers or chills, no cough or dyspnea. Objective: Vital Signs Temp Pulse Resp BP Pulse Ox 36.5 C 66 16 108/66 92 04/20/18 05:52 04/20/18 05:52 04/20/18 05:52 04/20/18 05:52 04/20/18 05:52 04/19/18 04/20/18 04/21/18 05:59 05:59 05:59 Intake Total 798 800 Balance 798 800 Physical Exam - Physical Exam General Appearance: WD/WN, alert, no apparent distress EENT: other (Facial bruising) Respiratory: normal breath sounds, crackles (expiratory, LLL), No rhonchi, No wheezing Cardiac/Chest: regular rate, rhythm, No diastolic murmur, No systolic murmur Skin: normal color, warm/dry Neuro/Psych: alert, normal mood/affect, oriented x 3 ICD10 Worksheet Patient Problems: Problems Problem Status Onset Essential hypertension Active Seizure disorder Active
[2018-04-20] MEDS: PETROLAT,WHT/MIN OIL/SOD CHL 3.5 GM OPHT.OINT LEFTEYE SCH (22:05)
[2018-04-20] MEDS: LATANOPROST 0.005% 2.5 ML OPHT DROPS EACHEYE SCH (22:06)
[2018-04-21] MEDS: oxyCODONE IR 5 MG TAB PO PRN ×2 (05:09→23:33)
[2018-04-21] MEDS: LEVOTHYROXINE 100 MCG TAB PO SCH (05:09)
[2018-04-21] MEDS: SENNOSIDES/DOCUSATE SODIUM TAB PO SCH (09:05)
[2018-04-21] MEDS: levETIRAcetam 250 MG TAB PO SCH ×2 (09:05→21:24)
[2018-04-21] MEDS: levETIRAcetam 500 MG TAB PO SCH ×2 (09:05→21:24)
[2018-04-21] MEDS: CHLORHEXIDINE GLUCONATE 15 ML UDL PO SCH ×2 (09:06→21:24)
[2018-04-21] MEDS: ENOXAPARIN 30 MG/0.3 ML SYR SC SCH ×2 (09:08→21:24)
[2018-04-21] MEDS: ATORVASTATIN CALCIUM 10 MG TAB PO SCH (09:08)
--- NOTE | 2018-04-21 09:21 | SOAPPROG ---
SOAP Progress Note Assessment/Plan: Assessment: 73 YO gentleman with multiple trauma secondary to fall at home 04/08/2018. Has remote history of left hemisphere cerebrovascular accident, left ventriculoperitoneal shunt, right hemiparesis, altered mobility. Complex, severely displaced left humeral neck fracture, now status post left glenohumeral arthroplasty. Postop films show good anatomical alignment and hardware placement. Current pain tolerance good. Activity markedly limited. Adequate pain control. Continue left arm immobilizer. PHYSICAL THERAPY TO ASCERTAIN LEFT SHOULDER TOTAL SHOULDER PRECAUTIONS AND PERFORM RANGE OF MOTION AND STRENGTHENING ACTIVITIES WITHIN CONFINES OF THESE PRECAUTIONS. * Initial FIM 55 on 04/17/2018. Min A bed mobility. Transfers CGA/min A. Walks short distances contact guard assist to minimal assist. No device used for transfers or ambulation. Self-propelled wheelchair 50 ft with standby assist. Grooming and hygiene required moderate assist. He has to relearn use of his right hand for ADLs. Upper body and lower body dressing required maximal assist. Bath transfer required moderate assist and bathing required maximal assist. Toileting required maximal assist for clothing management. * Continue PT and OT Post stroke aphasia, dysarthria, mild to moderate cognitive impairment including memory deficits. Considered at baseline. 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 Complex left facial trauma (Zygomaticomaxillary, Nasal and orbital Fx's) No complications. Status post ORIF. * Sutures and external nasal splint removed on 04/19/2018. Internal splint to be removed by ENT in followup, currently scheduled for 04/25/2018. Pain management: adequate control. Continue p.r.n. opiate, Tylenol, muscle relaxants. * Has not been using methocarbamol. Using oxycodone at HS x2 nights. HAS LEFT UPPER AND LEFT LOWER EXTREMITY PAIN AT NIGHT WHICH IS WELL CONTROLLED ON CURRENT PAIN MEDICATIONS. Bowel and bladder issues: None currently. Monitor for opiate-induced constipation. Glaucoma: Continue current medication. Dyslipidemia: Continue atorvastatin. Hypothyroidism: Continue levothyroxine. Cataract. Prostate cancer: Continue Lupron therapy per Dr. Garcia. Seizure disorder: Continue Keppra and Lamictal as prescribed. In addition, patient takes p.r.n. liquid diazepam at initial suspicion of seizure prodrome. Breast cancer status post bilateral mastectomy. No current issues. Possible osteoporosis. He reports he has been receiving IV bone density medication (possibly zoledronic acid close) every [address] Garcia. Consider referral to gis mapping technician after discharge for additional medications. Deep venous thrombosis prophylaxis. Moderate to high risk. Mobility is progressing but he is not yet walking greater than 150 ft, as of 04/20/2018. Continue enoxaparin 30 mg b.i.d. DISPOSITION: Tentative discharge date set for 04/27/2018. He will discharge home with his and with help from a local son and possibly ict help desk technician as well. FOLLOW-UP: He is to follow up with ENT on 04/25/2018 and with orthopedic surgery on the same date. 04/21/18 09:23 Subjective: HE REPORTS HE HAD PAIN IN HIS LEFT SHOULDER AND LEG LAST NIGHT FOR WHICH SHE REQUESTED PAIN MEDICATIONS. CURRENTLY DENIES SIGNIFICANT LEFT UPPER OR LOWER EXTREMITY PAIN. REPORTS MILD LEFT HAND SWELLING. DENIES LEFT SHOULDER PAIN. Objective: Vital Signs Temp Pulse Resp BP Pulse Ox 36.9 C 78 16 106/74 94 04/20/18 20:00 04/20/18 20:00 04/20/18 20:00 04/20/18 20:00 04/20/18 20:00 04/20/18 04/21/18 04/22/18 05:59 05:59 05:59 Intake Total 800 850 Balance 800 850 Physical Exam - Physical Exam General Appearance: WD/WN, alert, no apparent distress, other (LEFT SHOULDER SLING/ABDUCTION PILLOW IN PLACE.) Neck: full range of motion, supple Respiratory: lungs clear, normal breath sounds Cardiac/Chest: regular rate, rhythm, other (NO LOWER EXTREMITY EDEMA. NO CALF TENDERNESS.) Abdomen: normal bowel sounds, non-tender, soft Skin: warm/dry, other (ECCHYMOSES RIGHT SIDE OF FACE.) Extremities: swelling, other (LEFT HAND SWELLING) Neuro/Psych: motor weakness (RIGHT UPPER GREATER THAN RIGHT LOWER EXTREMITY WEAKNESS FROM PREVIOUS CVA. HAS FUNCTIONAL RIGHT SHOULDER GIRDLE STRENGTH .HOLDS RIGHT FINGERS IN SLIGHT FLEXED POSITION.) ICD10 Worksheet Patient Problems: Problems Problem Status Onset Essential hypertension Active Seizure disorder Active
[2018-04-21] MEDS: BRIMONIDINE 0.2% 5 ML OPHT.BTL EACHEYE SCH ×2 (09:25→21:25)
[2018-04-21] MEDS: lamoTRIgine 100 MG TAB PO SCH ×3 (09:26→17:24)
[2018-04-21] MEDS: PETROLAT,WHT/MIN OIL/SOD CHL 3.5 GM OPHT.OINT LEFTEYE SCH (21:25)
[2018-04-21] MEDS: LATANOPROST 0.005% 2.5 ML OPHT DROPS EACHEYE SCH (21:25)
[2018-04-21] MEDS: ACETAMINOPHEN 325 MG TAB PO PRN (23:33)
[2018-04-22] MEDS: LEVOTHYROXINE 100 MCG TAB PO SCH (06:17)
[2018-04-22] MEDS: levETIRAcetam 250 MG TAB PO SCH ×2 (08:12→22:31)
[2018-04-22] MEDS: levETIRAcetam 500 MG TAB PO SCH ×2 (08:12→22:31)
[2018-04-22] MEDS: ATORVASTATIN CALCIUM 10 MG TAB PO SCH (08:14)
[2018-04-22] MEDS: CHLORHEXIDINE GLUCONATE 15 ML UDL PO SCH ×2 (08:15→22:31)
[2018-04-22] MEDS: SENNOSIDES/DOCUSATE SODIUM TAB PO SCH (08:15)
[2018-04-22] MEDS: BRIMONIDINE 0.2% 5 ML OPHT.BTL EACHEYE SCH ×2 (08:16→22:33)
[2018-04-22] MEDS: lamoTRIgine 100 MG TAB PO SCH ×3 (08:16→17:53)
[2018-04-22] MEDS: ENOXAPARIN 30 MG/0.3 ML SYR SC SCH ×2 (09:20→22:31)
--- NOTE | 2018-04-22 09:36 | SOAPPROG ---
SOAP Progress Note Assessment/Plan: Assessment: 73 YO gentleman with multiple trauma secondary to fall at home 04/08/2018. Has remote history of left hemisphere cerebrovascular accident, left ventriculoperitoneal shunt, right hemiparesis, altered mobility. Complex, severely displaced left humeral neck fracture, now status post left glenohumeral arthroplasty. Postop films show good anatomical alignment and hardware placement. Current pain tolerance good. Activity markedly limited. Adequate pain control. Continue left arm immobilizer. PHYSICAL THERAPY TO ASCERTAIN LEFT SHOULDER TOTAL SHOULDER PRECAUTIONS AND PERFORM RANGE OF MOTION AND STRENGTHENING ACTIVITIES WITHIN CONFINES OF THESE PRECAUTIONS. * Initial FIM 55 on 04/17/2018. Min A bed mobility. Transfers CGA/min A. Walks short distances contact guard assist to minimal assist. No device used for transfers or ambulation. Currently ambulating 120 ft contact guard assist without difficulty. Self-propelled wheelchair 50 ft with standby assist. Grooming and hygiene required moderate assist. He has to relearn use of his right hand for ADLs. Upper body and lower body dressing required maximal assist. Bath transfer required moderate assist and bathing required maximal assist. Toileting required maximal assist for clothing management. * Continue PT and OT Post stroke aphasia, dysarthria, mild to moderate cognitive impairment including memory deficits. Considered at baseline. 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 Complex left facial trauma (Zygomaticomaxillary, Nasal and orbital Fx's) No complications. Status post ORIF. * Sutures and external nasal splint removed on 04/19/2018. Internal splint to be removed by ENT in followup, currently scheduled for 04/25/2018. Pain management: adequate control. Continue p.r.n. opiate, Tylenol, muscle relaxants. * Has not been using methocarbamol. Using oxycodone at HS x2 nights. HAS LEFT UPPER AND LEFT LOWER EXTREMITY PAIN AT NIGHT WHICH IS WELL CONTROLLED ON CURRENT PAIN MEDICATIONS. Pulmonary rehab: Reviewed with patient to use incentive spirometer 10 puffs per hour. Perform 1 strong cough per hour while awake. Would benefit from physical therapy instructing on exercises to strengthen the accessory breathing muscles and diaphragm. Left hand swelling-secondary to dependent position and left upper extremity immobilization due to left total shoulder arthroplasty. Patient has been provided with a sponge ball. He was encouraged to squeeze this at least 20 times per hour. Discussed with nursing that while patient is seated left hand should be elevated with pillow to avoid dependent edema. Bowel and bladder issues: None currently. Monitor for opiate-induced constipation. Glaucoma: Continue current medication. Dyslipidemia: Continue atorvastatin. Hypothyroidism: Continue levothyroxine. Cataract. Prostate cancer: Continue Lupron therapy per Dr. Garcia. Seizure disorder: Continue Keppra and Lamictal as prescribed. In addition, patient takes p.r.n. liquid diazepam at initial suspicion of seizure prodrome. Breast cancer status post bilateral mastectomy. No current issues. Possible osteoporosis. He reports he has been receiving IV bone density medication (possibly zoledronic acid close) every [address] Garcia. Consider referral to carpenters helper after discharge for additional medications. Deep venous thrombosis prophylaxis. Moderate to high risk. Mobility is progressing but he is not yet walking greater than 150 ft, as of 04/20/2018. Continue enoxaparin 30 mg b.i.d. DISPOSITION: Tentative discharge date set for 04/27/2018. He will discharge home with his and with help from a local son and possibly surveyor rod helper as well. FOLLOW-UP: He is to follow up with ENT on 04/25/2018 and with orthopedic surgery on the same date. 04/22/18 09:36 Subjective: No complaints per patient. Nursing reports right ankle is slightly swollen. Patient denies significant left shoulder pain. Reports good pain control overall. Objective: Vital Signs Temp Pulse Resp BP Pulse Ox 36.6 C 65 17 122/71 H 93 04/22/18 06:38 04/22/18 06:38 04/22/18 06:38 04/22/18 06:38 04/22/18 06:38 04/21/18 04/22/18 04/23/18 05:59 05:59 05:59 Intake Total 850 600 300 Balance 850 600 300 Physical Exam - Physical Exam General Appearance: WD/WN, alert, no apparent distress Respiratory: lungs clear, decreased breath sounds, other (Not moving air, probably due to decreased inspiratory effort.) Cardiac/Chest: regular rate, rhythm Abdomen: non-tender, soft Skin: other (Left shoulder incision bandaged. No drainage or omkar-incisional erythema reported by nursing.) Extremities: pedal edema, other (Left shoulder sling/abduction pillow in place. Left hand slightly swollen independent position.), No calf tenderness, No swelling, No Leeann's sign Neuro/Psych: alert, oriented x 3, motor weakness (Right-sided weakness secondary to previous CVA.), speech abnormalities (Mild dysarthria secondary to previous CVA.) ICD10 Worksheet Patient Problems: Problems Problem Status Onset Essential hypertension Active Seizure disorder Active
[2018-04-22] MEDS: PETROLAT,WHT/MIN OIL/SOD CHL 3.5 GM OPHT.OINT LEFTEYE SCH (22:33)
[2018-04-22] MEDS: LATANOPROST 0.005% 2.5 ML OPHT DROPS EACHEYE SCH (22:33)
[2018-04-23] MEDS: oxyCODONE IR 5 MG TAB PO PRN (01:33)
[2018-04-23] MEDS: LEVOTHYROXINE 100 MCG TAB PO SCH (05:01)
[2018-04-23] MEDS: lamoTRIgine 100 MG TAB PO SCH ×3 (09:07→17:52)
[2018-04-23] MEDS: SENNOSIDES/DOCUSATE SODIUM TAB PO SCH (09:07)
[2018-04-23] MEDS: levETIRAcetam 500 MG TAB PO SCH ×2 (09:07→22:08)
[2018-04-23] MEDS: levETIRAcetam 250 MG TAB PO SCH ×2 (09:07→22:08)
[2018-04-23] MEDS: ATORVASTATIN CALCIUM 10 MG TAB PO SCH (09:07)
[2018-04-23] MEDS: CHLORHEXIDINE GLUCONATE 15 ML UDL PO SCH ×2 (09:08→22:12)
[2018-04-23] MEDS: ENOXAPARIN 30 MG/0.3 ML SYR SC SCH ×2 (09:08→23:02)
[2018-04-23] MEDS: BRIMONIDINE 0.2% 5 ML OPHT.BTL EACHEYE SCH ×2 (09:32→23:01)
--- NOTE | 2018-04-23 11:42 | SOAPPROG ---
SOAP Progress Note Assessment/Plan: Assessment: 73 YO gentleman with multiple trauma secondary to fall at home 04/08/2018. Has remote history of left hemisphere cerebrovascular accident, left ventriculoperitoneal shunt, right hemiparesis, altered mobility. Complex, severely displaced left humeral neck fracture, now status post left glenohumeral arthroplasty. Postop films show good anatomical alignment and hardware placement. Current pain tolerance good. Activity markedly limited. Adequate pain control. Continue left arm immobilizer. DISCUSSED SHOULDER PRECAUTIONS WITH OCCUPATIONAL THERAPIST. * Initial FIM 55 on 04/17/2018. Min A bed mobility. Transfers CGA/min A. Walks short distances contact guard assist to minimal assist. No device used for transfers or ambulation. Currently ambulating 120 ft contact guard assist without difficulty. Self-propelled wheelchair 50 ft with standby assist. Grooming and hygiene required moderate assist. He has to relearn use of his right hand for ADLs. Upper body and lower body dressing required maximal assist. Bath transfer required moderate assist and bathing required maximal assist. Toileting required maximal assist for clothing management. * Continue PT and OT LEFT ELBOW PAIN-DISCUSSED WITH OCCUPATIONAL THERAPY TO FABRICATE LEFT ELBOW PAD RELIEVE PRESSURE, PREVENT OLECRANON BURSITIS. NO EVIDENCE OF ULNAR NEURITIS AT LEFT ELBOW. WILL WRITE FOR LIDODERM PATCH APPLY LEFT ELBOW. Post stroke aphasia, dysarthria, mild to moderate cognitive impairment including memory deficits. Considered at baseline. 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 Complex left facial trauma (Zygomaticomaxillary, Nasal and orbital Fx's) No complications. Status post ORIF. * Sutures and external nasal splint removed on 04/19/2018. Internal splint to be removed by ENT in followup, currently scheduled for 04/25/2018. Pain management: adequate control. Continue p.r.n. opiate, Tylenol, muscle relaxants. LIDODERM PATCH LEFT ELBOW * Has not been using methocarbamol. Using oxycodone at HS x2 nights. Pulmonary rehab: Reviewed with patient to use incentive spirometer 10 puffs per hour. Perform 1 strong cough per hour while awake. Would benefit from physical therapy instructing on exercises to strengthen the accessory breathing muscles and diaphragm. Left hand swelling-secondary to dependent position and left upper extremity immobilization due to left total shoulder arthroplasty. Patient has been provided with a sponge ball. He was encouraged to squeeze this at least 20 times per hour. Discussed with nursing that while patient is seated left hand should be elevated with pillow to avoid dependent edema. Bowel and bladder issues: None currently. Monitor for opiate-induced constipation. Glaucoma: Continue current medication. Dyslipidemia: Continue atorvastatin. Hypothyroidism: Continue levothyroxine. Cataract. Prostate cancer: Continue Lupron therapy per Dr. Garcia. Seizure disorder: Continue Keppra and Lamictal as prescribed. In addition, patient takes p.r.n. liquid diazepam at initial suspicion of seizure prodrome. Breast cancer status post bilateral mastectomy. No current issues. Possible osteoporosis. He reports he has been receiving IV bone density medication (possibly zoledronic acid close) every [address] Garcia. Consider referral to domestic cleaner after discharge for additional medications. Deep venous thrombosis prophylaxis. Moderate to high risk. Mobility is progressing but he is not yet walking greater than 150 ft, as of 04/20/2018. Continue enoxaparin 30 mg b.i.d. DISPOSITION: Tentative discharge date set for 04/27/2018. He will discharge home with his and with help from a local son and possibly baker helper as well. FOLLOW-UP: He is to follow up with ENT on 04/25/2018 and with orthopedic surgery on the same date. 04/23/18 11:40 Subjective: HE COMPLAINS OF LEFT ELBOW PAIN. DENIES LEFT SHOULDER PAIN. HE REPORTS LESS LEFT HAND SWELLING SINCE WEARING COMPRESSION GLOVE. Objective: Vital Signs Temp Pulse Resp BP Pulse Ox 36.7 C 69 12 123/84 H 93 04/23/18 07:42 04/23/18 07:42 04/23/18 07:42 04/23/18 07:42 04/23/18 07:42 04/22/18 04/23/18 04/24/18 05:59 05:59 05:59 Intake Total 600 918 240 Balance 600 918 240 Physical Exam - Physical Exam General Appearance: WD/WN, alert, no apparent distress Respiratory: lungs clear, normal breath sounds Abdomen: normal bowel sounds, non-tender, soft Extremities: other (NO SWELLING OVER LEFT OLECRANON., NO ERYTHEMA. NO INDURATION.), No swelling, No Leeann's sign Neuro/Psych: alert, normal mood/affect, oriented x 3, motor weakness (RIGHT HEMIPARESIS SECONDARY TO OLD CVA.), other (NEGATIVE TINEL'S, ULNAR NERVE LEFT ELBOW.) ICD10 Worksheet Patient Problems: Problems Problem Status Onset Essential hypertension Active Seizure disorder Active
[2018-04-23] MEDS: LIDOCAINE 4%/MENTHOL 1% PATCH TD SCH (13:00)
[2018-04-23] MEDS: LATANOPROST 0.005% 2.5 ML OPHT DROPS EACHEYE SCH (23:00)
[2018-04-23] MEDS: PETROLAT,WHT/MIN OIL/SOD CHL 3.5 GM OPHT.OINT LEFTEYE SCH (23:01)
[2018-04-23] MEDS: PATCH REMOVAL 1 EA PATCH TD SCH (23:01)
[2018-04-24] MEDS: LEVOTHYROXINE 100 MCG TAB PO SCH (06:00)
[2018-04-24] MEDS: levETIRAcetam 500 MG TAB PO SCH ×2 (08:17→22:01)
[2018-04-24] MEDS: CHLORHEXIDINE GLUCONATE 15 ML UDL PO SCH ×2 (08:17→22:02)
[2018-04-24] MEDS: levETIRAcetam 250 MG TAB PO SCH ×2 (08:17→22:01)
[2018-04-24] MEDS: SENNOSIDES/DOCUSATE SODIUM TAB PO SCH (08:18)
[2018-04-24] MEDS: ATORVASTATIN CALCIUM 10 MG TAB PO SCH (08:18)
[2018-04-24] MEDS: lamoTRIgine 100 MG TAB PO SCH ×3 (08:19→17:56)
[2018-04-24] MEDS: ENOXAPARIN 30 MG/0.3 ML SYR SC SCH ×2 (08:19→22:02)
[2018-04-24] MEDS: LIDOCAINE 4%/MENTHOL 1% PATCH TD SCH (08:21)
[2018-04-24] MEDS: POLYETHYLENE GLYCOL 3350 17 GM PKT PO PRN (09:30)
[2018-04-24] MEDS: TEARS/DEXTRAN 70/HYPROMELLOSE 15 ML OPHT.BTL EACHEYE SCH ×7 (09:31→23:47)
[2018-04-24] MEDS: BRIMONIDINE 0.2% 5 ML OPHT.BTL EACHEYE SCH ×3 (09:31→22:03)
--- NOTE | 2018-04-24 09:44 | PDOREHIP ---
Admission [facility] - Admission - 3 Day Assessment Period Admission Date/Day 1: 04/14/18 Day 2: 04/15/18 Day 3: 04/16/18 - Active Diagnoses Comorbidities and Co-existing Conditions at Admission: 50622. None of the Above Discharge [facility] - Discharge - 3 Day Assessment Period 2 Days Prior to Anticipated Discharge Date: 04/23/18 1 Day Prior to Anticipated Discharge Date: 04/24/18 Anticipated Discharge Date: 04/25/18 - Discharge Skin Conditions Unhealed Pressure Ulcer (1 or more/Stage 1 or >)-Discharge: 0. No # Stage 1 Pressure Ulcers-Discharge: 0 # Stage 2 Pressure Ulcers-Discharge: 0 # of These Stage 2 Pressure Ulcers Present on Admission: 0 # Stage 3 Pressure Ulcers-Discharge: 0 # of These Stage 3 Pressure Ulcers Present on Admission: 0 # Stage 4 Pressure Ulcers-Discharge: 0 # of These Stage 4 Pressure Ulcers Present on Admission: 0 # Unstageable Pressure Ulcers (Non-remove Dress)-Discharge: 0 # These Unstageable Pressure Ulcers (NRD)-Present on Admit: 0 # Unstageable Pressure Ulcers (Slough/Eschar)-Discharge: 0 # These Unstageable Pressure Ulcers(Slough) Present on Admit: 0 # Unstageable Pressure Ulcers (Deep Tissue Injury)-Discharge: 0 # These Unstageable Pressure Ulcers (DTI) Present on Admit: 0
--- NOTE | 2018-04-24 10:53 | SOAPPROG ---
SOAP Progress Note Assessment/Plan: 73-year-old male with multiple trauma due to fall at home on 04/08/2018, impairments in mobility and self-care Today's update: Rehabilitation continues to go well, continuing rehabilitation plan. Goal is to discharge to half-way facility later this week pending identification of inappropriate facility by family. Patient continues to have some tearing of his left eye at times, adding eyedrops every 2 hr while awake to help mitigate this symptom. Otherwise, pain is not been an issue for him. Additional issues reviewed without change today include pre-existing post stroke aphasia, dysarthria, mild to moderate cognitive impairments including memory deficits, at baseline per report. Pain management, bowel and bladder issues, skin issues, glaucoma, dyslipidemia, hypothyroidism, cataract, history of prostate and breast cancer, possible osteoporosis, DVT prophylaxis. A total of 35 min was spent on the floor in the care of the patient, the majority of which was spent in counseling and coordination of care regarding discharge planning. 04/17/18 10:07 04/19/18 13:37 04/24/18 10:49 Subjective: Chief complaint: Rehabilitation progress No acute events overnight. Patient denies any new shortness of breath or chest pain, no new numbness, tingling, or weakness. He feels like his rehabilitation is been going fine, only complaint has been regarding his eyelid function, feels that the asymmetry has been bothering him. Tearing up periodically in his left eye, no vision changes or photophobia. Ointment has been helpful in the left eye at night. Objective: Vital Signs Temp Pulse Resp BP Pulse Ox 36.7 C 68 14 127/87 H 95 04/24/18 08:00 04/24/18 08:00 04/24/18 08:00 04/24/18 08:00 04/24/18 08:00 04/23/18 04/24/18 04/25/18 05:59 05:59 05:59 Intake Total 918 790 340 Output Total 125 Balance 915 366 340 Physical Exam - Physical Exam General Appearance: WD/WN, alert, no apparent distress EENT: other (Facial incisions healing well, sutures have been removed. Left eye takes more effort to close than the right eye. Both eyes have slightly injected sclera, no excessive lacrimation noted), No scleral icterus (R), No scleral icterus (L) Respiratory: No respiratory distress, No accessory muscle use Cardiac/Chest: normal peripheral pulses, regular rate, rhythm, edema (1+ bilateral pitting edema, he feels that is unchanged) Skin: normal color, warm/dry, No cyanosis, No diaphoresis Extremities: other (Left arm in a sling, ecchymoses improving) Neuro/Psych: alert, normal mood/affect, abnormal dobie man II-XII (Left eye incompletely closing without effort), motor weakness (Right hand with spasticity and apraxia), speech abnormalities (Unchanged) ICD10 Worksheet Patient Problems: Problems Problem Status Onset Essential hypertension Active Seizure disorder Active
[2018-04-24] MEDS: ACETAMINOPHEN 325 MG TAB PO PRN (11:03)
--- NOTE | 2018-04-24 14:28 | PDDCSUM ---
Discharge Summary Discharge Summary: Name: Nixon Melara Admission date: 04/14/2018 Discharge date: 04/26/2018, anticipated Discharging physician: Shorty Lozano MD Admitting diagnosis: 14.2, multiple trauma Discharge diagnosis: Same Comorbid diagnoses: Complex left humeral neck fracture post glenohumeral arthroplasty, history of prior stroke, left complex facial trauma including multiple fractures, glaucoma, dyslipidemia, hypothyroidism, cataract, history of prostate cancer on Lupron, seizure disorder, breast cancer status post bilateral mastectomy Consultations: physical therapy, occupational therapy, speech language pathology , social work, dietary Procedures: None Reason for admission: Please see the full history and physical by Dr. Yara Josue dated 04/14/2018 for full details, but briefly the patient is a 73- year-old right-handed male who is now left-handed with remote history of left- sided stroke with right-sided hemiparesis and ataxia and subsequent seizure disorder status post a fall on 04/08/2018 where he landed on his face and left shoulder with associated fractures. He had shoulder arthroplasty and ORIF of the facial fractures on 04/11/[address] Leigh. He was admitted to inpatient rehabilitation for plan to discharge home with family. Rehabilitation course: Patient made slow but steady gains in inpatient rehabilitation, but insufficient gains to be able to go home with family. Decision was made collectively with team and patient as well as family for a [facility] discharge for continued healing with anticipation to ultimately discharged home. He was walking short distances with contact guard assist and no device necessary for ambulation, he still required immobilization of the left arm and had impaired movement of the right arm from his prior stroke. He was requiring assistance for all his ADLs including grooming and hygiene because of these impairments. On rehabilitation, sutures were removed and he will have follow-up with his surgeon. He had pain management with Tylenol, p.r.n. Opioids and Lidoderm patch on his left elbow. He had some edema in his left arm that was treated with muscle movement. He had no seizures on inpatient rehabilitation. Discharge plan: Discharging to [facility] care for ongoing rehabilitation. He is to be nonweightbearing in the left upper extremity with an immobilizer, continue seizure precautions. He will need assistance with mobility and ADLs as noted above. He also continues to have an internal nasal splint to be addressed at ENT follow-up. He should be on a regular diet with thin liquids and have weights weekly. Medications at discharge: Diazepam 1 milligram/mL, 1-2 mL p.r.n. For seizure aura Acetaminophen 650 mg orally every 4 hr as needed Bromocriptine 0.2% 1 drop each eye twice daily Enoxaparin 30 mg subcutaneous twice Daily Lidocaine 4%/mental 1% 1 patch transdermally daily Refresh p.m. Ointment 1 application to the left eye at bedtime Polyethylene glycol 17 g orally daily as needed Natural balance tears 1 drop each eye every 2 hr while awake Lyrica 150 mg orally at bedtime as needed Levetiracetam 250 mg orally twice daily Simvastatin 20 mg orally at bedtime Lumigan 0.01% 1 drop each eye at bedtime Levothyroxine 100 mcg orally daily at 6:00 a.m. Lamotrigine 150 mg orally daily at noon Lamotrigine 300 mg orally twice daily with meals Levetiracetam 1500 mg orally twice daily Chlorhexidine gluconate 15 mL orally twice daily swish and spit Oxycodone IR 5-10 mg orally every 4 hr as needed for pain Senna/docusate 1 tab orally daily Methocarbamol 750 mg orally every 8 hr as needed for muscle spasms Pending studies: None Follow up: Follow-up with Otolaryngology, orthopedic surgery, Oncology as needed , ophthalmology.
[2018-04-24] MEDS ORDERED: DIAZEPAM PO PRN (14:40)
[2018-04-24] MEDS: PETROLAT,WHT/MIN OIL/SOD CHL 3.5 GM OPHT.OINT LEFTEYE SCH (22:02)
[2018-04-24] MEDS: LATANOPROST 0.005% 2.5 ML OPHT DROPS EACHEYE SCH (22:25)
[2018-04-24] MEDS: PATCH REMOVAL 1 EA PATCH TD SCH (22:25)
[2018-04-25] MEDS: ACETAMINOPHEN 325 MG TAB PO PRN ×2 (04:12→21:23)
[2018-04-25] MEDS: LEVOTHYROXINE 100 MCG TAB PO SCH (06:11)
[2018-04-25] MEDS: TEARS/DEXTRAN 70/HYPROMELLOSE 15 ML OPHT.BTL EACHEYE SCH ×9 (06:12→22:30)
[2018-04-25] MEDS: ENOXAPARIN 30 MG/0.3 ML SYR SC SCH ×2 (07:55→21:21)
[2018-04-25] MEDS: levETIRAcetam 500 MG TAB PO SCH ×2 (07:56→21:21)
[2018-04-25] MEDS: lamoTRIgine 100 MG TAB PO SCH ×3 (07:56→17:10)
[2018-04-25] MEDS: levETIRAcetam 250 MG TAB PO SCH ×2 (07:57→21:21)
[2018-04-25] MEDS: SENNOSIDES/DOCUSATE SODIUM TAB PO SCH (07:57)
[2018-04-25] MEDS: POLYETHYLENE GLYCOL 3350 17 GM PKT PO PRN (07:57)
[2018-04-25] MEDS: ATORVASTATIN CALCIUM 10 MG TAB PO SCH (07:57)
[2018-04-25] MEDS: CHLORHEXIDINE GLUCONATE 15 ML UDL PO SCH ×2 (07:57→21:21)
[2018-04-25] MEDS: BRIMONIDINE 0.2% 5 ML OPHT.BTL EACHEYE SCH (07:59)
--- NOTE | 2018-04-25 11:43 | SOAPPROG ---
SOAP Progress Note Assessment/Plan: Assessment: 73 YO gentleman with multiple trauma secondary to fall at home 04/08/2018. Has remote history of left hemisphere cerebrovascular accident, left ventriculoperitoneal shunt, right hemiparesis, altered mobility. Complex, severely displaced left humeral neck fracture, now status post left glenohumeral arthroplasty. Postop films show good anatomical alignment and hardware placement. Current pain tolerance good. Activity markedly limited. Adequate pain control. Continue left arm immobilizer. DISCUSSED SHOULDER PRECAUTIONS WITH OCCUPATIONAL THERAPIST. * Initial FIM 55 on 04/17/2018. Min A bed mobility. Transfers CGA/min A. Walks short distances contact guard assist to minimal assist. No device used for transfers or ambulation. Currently ambulating 120 ft contact guard assist without difficulty. Self-propelled wheelchair 50 ft with standby assist. Grooming and hygiene required moderate assist. He has to relearn use of his right hand for ADLs. Upper body and lower body dressing required maximal assist. Bath transfer required moderate assist and bathing required maximal assist. Toileting required maximal assist for clothing management. * Continue PT and OT LEFT ELBOW PAIN-DISCUSSED WITH OCCUPATIONAL THERAPY TO FABRICATE LEFT ELBOW PAD RELIEVE PRESSURE, PREVENT OLECRANON BURSITIS. NO EVIDENCE OF ULNAR NEURITIS AT LEFT ELBOW. WILL WRITE FOR LIDODERM PATCH APPLY LEFT ELBOW. Post stroke aphasia, dysarthria, mild to moderate cognitive impairment including memory deficits. Considered at baseline. 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 Complex left facial trauma (Zygomaticomaxillary, Nasal and orbital Fx's) No complications. Status post ORIF. * Sutures and external nasal splint removed on 04/19/2018. Internal splint to be removed by ENT in followup, currently scheduled for 04/25/2018. Pain management: adequate control. Continue p.r.n. opiate, Tylenol, muscle relaxants. LIDODERM PATCH LEFT ELBOW * Has not been using methocarbamol. Using oxycodone at HS x2 nights. Pulmonary rehab: Reviewed with patient to use incentive spirometer 10 puffs per hour. Perform 1 strong cough per hour while awake. Would benefit from physical therapy instructing on exercises to strengthen the accessory breathing muscles and diaphragm. Left hand swelling-secondary to dependent position and left upper extremity immobilization due to left total shoulder arthroplasty. Patient has been provided with a sponge ball. He was encouraged to squeeze this at least 20 times per hour. Discussed with nursing that while patient is seated left hand should be elevated with pillow to avoid dependent edema. Bowel and bladder issues: None currently. Monitor for opiate-induced constipation. Glaucoma: Continue current medication. Dyslipidemia: Continue atorvastatin. Hypothyroidism: Continue levothyroxine. Cataract. Prostate cancer: Continue Lupron therapy per Dr. Garcia. Seizure disorder: Continue Keppra and Lamictal as prescribed. In addition, patient takes p.r.n. liquid diazepam at initial suspicion of seizure prodrome. Breast cancer status post bilateral mastectomy. No current issues. Possible osteoporosis. He reports he has been receiving IV bone density medication (possibly zoledronic acid close) every [address] Garcia. Consider referral to property management bookkeeper after discharge for additional medications. Deep venous thrombosis prophylaxis. Moderate to high risk. Mobility is progressing but he is not yet walking greater than 150 ft, as of 04/20/2018. Continue enoxaparin 30 mg b.i.d. DISPOSITION: Tentative discharge date set for 04/27/2018. He will discharge home with his and with help from a local son and possibly compounder helper as well. FOLLOW-UP: He is to follow up with ENT on 04/25/2018 and with orthopedic surgery on the same date. 04/23/18 11:40 Objective: Vital Signs Temp Pulse Resp BP Pulse Ox 36.5 C 67 16 141/87 H 95 04/25/18 07:54 04/25/18 07:54 04/25/18 07:54 04/25/18 07:54 04/25/18 07:54 04/24/18 04/25/18 04/26/18 05:59 05:59 05:59 Intake Total 790 840 Output Total 125 600 Balance 665 240 ICD10 Worksheet Patient Problems: Problems Problem Status Onset Essential hypertension Active Seizure disorder Active
[2018-04-25] MEDS: LIDOCAINE 4%/MENTHOL 1% PATCH TD SCH (12:53)
[2018-04-25] MEDS ORDERED: BACITRACIN OINTMENT 1 PACKET TP ONE (13:12)
--- NOTE | 2018-04-25 15:04 | SOAPPROG ---
SOAP Progress Note Assessment/Plan: Assessment: 73 YO gentleman with multiple trauma secondary to fall at home 04/08/2018. Has remote history of left hemisphere cerebrovascular accident, left ventriculoperitoneal shunt, right hemiparesis, altered mobility. Complex, severely displaced left humeral neck fracture, now status post left glenohumeral arthroplasty. Postop films show good anatomical alignment and hardware placement. Current pain tolerance good. Activity markedly limited. Adequate pain control. Continue left arm immobilizer. DISCUSSED SHOULDER PRECAUTIONS WITH OCCUPATIONAL THERAPIST. * Initial FIM 55 on 04/17/2018. Min A bed mobility. Transfers CGA/min A. Walks short distances contact guard assist to minimal assist. No device used for transfers or ambulation. Currently ambulating 120 ft contact guard assist without difficulty. Self-propelled wheelchair 50 ft with standby assist. Grooming and hygiene required moderate assist. He has to relearn use of his right hand for ADLs. Upper body and lower body dressing required maximal assist. Bath transfer required moderate assist and bathing required maximal assist. Toileting required maximal assist for clothing management. * Continue PT and OT Wound care-he nursing to apply additional Steri-Strips proximal pole left incision. Apply bacitracin to proximal pole of incision. LEFT ELBOW PAIN-DISCUSSED WITH OCCUPATIONAL THERAPY TO FABRICATE LEFT ELBOW PAD RELIEVE PRESSURE, PREVENT OLECRANON BURSITIS. NO EVIDENCE OF ULNAR NEURITIS AT LEFT ELBOW. WILL WRITE FOR LIDODERM PATCH APPLY LEFT ELBOW. Post stroke aphasia, dysarthria, mild to moderate cognitive impairment including memory deficits and organization skills. Considered at baseline. * Continue TIME SIGNAL WIRER. Complex left facial trauma (Zygomaticomaxillary, Nasal and orbital Fx's) No complications. Status post ORIF. * Sutures and external nasal splint removed on 04/19/2018. Internal splint to be removed by ENT in followup, currently scheduled for 04/25/2018. Pain management: adequate control. Continue p.r.n. opiate, Tylenol, muscle relaxants. LIDODERM PATCH LEFT ELBOW * Has not been using methocarbamol. Using oxycodone at HS x2 nights. Pulmonary rehab: Reviewed with patient to use incentive spirometer 10 puffs per hour. Perform 1 strong cough per hour while awake. Would benefit from physical therapy instructing on exercises to strengthen the accessory breathing muscles and diaphragm. Left hand swelling-secondary to dependent position and left upper extremity immobilization due to left total shoulder arthroplasty. Patient has been provided with a sponge ball. He was encouraged to squeeze this at least 20 times per hour. Discussed with nursing that while patient is seated left hand should be elevated with pillow to avoid dependent edema. Bowel and bladder issues: None currently. Monitor for opiate-induced constipation. Glaucoma: Continue current medication. Dyslipidemia: Continue atorvastatin. Hypothyroidism: Continue levothyroxine. Cataract. Prostate cancer: Continue Lupron therapy per Dr. Garcia. Seizure disorder: Continue Keppra and Lamictal as prescribed. In addition, patient takes p.r.n. liquid diazepam at initial suspicion of seizure prodrome. Breast cancer status post bilateral mastectomy. No current issues. Possible osteoporosis. He reports he has been receiving IV bone density medication (possibly zoledronic acid close) every [address] Garcia. Consider referral to [employer] mission systems superintendent after discharge for additional medications. Deep venous thrombosis prophylaxis. Moderate to high risk. Mobility is progressing but he is not yet walking greater than 150 ft, as of 04/20/2018. Continue enoxaparin 30 mg b.i.d. DISPOSITION: HE IS SCHEDULED TO GO TO [facility] ON 04/26. ALL DISCHARGE PREPARATION WORK HAS BEEN COMPLETED BY DR. HERNANDEZ ON 04/24. DR. ARELLANO WILL NEED TO RIGHT DISCHARGE ORDER AN ADDENDUM DISCHARGE SUMMARY DEEMED NECESSARY. FOLLOW-UP: WILL CHECK WITH CASE MANAGEMENT REGARDING FOLLOW-UP DATE FOR ENT, OF 04/25/2018 04/23/18 11:40 04/25/18 16:30 Subjective: Patient complains of frequent nasal discharge described as clear thin consistency. No associated headache. Denies increased facial pain. Denies visual changes. He saw his orthopedic surgeon today who recommended continued gauze dressings and waterproof barrier. He denies significant left shoulder, elbow or hand pain. Reports intermittent difficulty closing left thigh. States that he does not want tape shut at night. Objective: Vital Signs Temp Pulse Resp BP Pulse Ox 36.5 C 67 16 141/87 H 95 04/25/18 07:54 04/25/18 07:54 04/25/18 07:54 04/25/18 07:54 04/25/18 07:54 04/24/18 04/25/18 04/26/18 05:59 05:59 05:59 Intake Total 790 840 Output Total 125 600 Balance 665 240 Physical Exam - Physical Exam General Appearance: WD/WN, alert, no apparent distress Respiratory: lungs clear, normal breath sounds Abdomen: normal bowel sounds, non-tender, soft Skin: other (Left shoulder incision is healing well. Proximal pole of incision is open, no drainage or erythema. ) Extremities: normal range of motion (Did not assess left glenohumeral range of motion. ), No swelling, No Leeann's sign Neuro/Psych: oriented x 3, motor weakness (Upper extremity motor exam unchanged. 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 OT has also noticed increased strength of right upper extremity during therapy sessions due to increased emphasis of using right upper extremity secondary to inability to use left upper extremity), cognition abnormalities (Decreased carry-over noted during therapy sessions. Decreased organizational skills and short-term memory. ) ICD10 Worksheet Patient Problems: Problems Problem Status Onset Essential hypertension Active Seizure disorder Active
[2018-04-25] MEDS: PETROLAT,WHT/MIN OIL/SOD CHL 3.5 GM OPHT.OINT LEFTEYE SCH (21:22)
[2018-04-25] MEDS: LATANOPROST 0.005% 2.5 ML OPHT DROPS EACHEYE SCH (21:24)
[2018-04-25] MEDS: PATCH REMOVAL 1 EA PATCH TD SCH (21:24)
[2018-04-26] MEDS: TEARS/DEXTRAN 70/HYPROMELLOSE 15 ML OPHT.BTL EACHEYE SCH ×4 (07:13→11:43)
[2018-04-26] MEDS: LEVOTHYROXINE 100 MCG TAB PO SCH (07:13)
[2018-04-26] MEDS: CHLORHEXIDINE GLUCONATE 15 ML UDL PO SCH (09:02)
[2018-04-26] MEDS: ATORVASTATIN CALCIUM 10 MG TAB PO SCH (09:02)
[2018-04-26] MEDS: levETIRAcetam 500 MG TAB PO SCH (09:02)
[2018-04-26] MEDS: levETIRAcetam 250 MG TAB PO SCH (09:03)
[2018-04-26] MEDS: LIDOCAINE 4%/MENTHOL 1% PATCH TD SCH (09:04)
[2018-04-26] MEDS: POLYETHYLENE GLYCOL 3350 17 GM PKT PO PRN (09:04)
[2018-04-26] MEDS: BRIMONIDINE 0.2% 5 ML OPHT.BTL EACHEYE SCH (09:04)
[2018-04-26] MEDS: lamoTRIgine 100 MG TAB PO SCH ×2 (09:04→12:16)
[2018-04-26] MEDS: ENOXAPARIN 30 MG/0.3 ML SYR SC SCH (09:04)
[2018-04-26] MEDS: SENNOSIDES/DOCUSATE SODIUM TAB PO SCH (09:05)
[2018-04-26 11:17] VITALS: BP 119/82
== END 2018-04-26 12:55 | DRG 560 ==
LOC: BREH 14:33
PROVIDERS: ADMIT Physical Medicine & Rehabilitation; ATTEND Internal Medicine Hospice and Palliative Medicine
DX: S42.292D Other displaced fracture of upper end of left humerus, subsequent encounter for fracture with routine healing (principal); S42.252D Displaced fracture of greater tuberosity of left humerus, subsequent encounter for fracture with routine healing; S02.40FD Zygomatic fracture, left side, subsequent encounter for fracture with routine healing; S02.40DD Maxillary fracture, left side, subsequent encounter for fracture with routine healing; S02.2XXD Fracture of nasal bones, subsequent encounter for fracture with routine healing; S02.82XD Fracture of other specified skull and facial bones, left side, subsequent encounter for fracture with routine healing; W10.9XXD Fall (on) (from) unspecified stairs and steps, subsequent encounter; I69.351 Hemiplegia and hemiparesis following cerebral infarction affecting right dominant side; I69.393 Ataxia following cerebral infarction; I69.398 Other sequelae of cerebral infarction; G40.909 Epilepsy, unspecified, not intractable, without status epilepticus; G31.84 Mild cognitive impairment of uncertain or unknown etiology; R47.1 Dysarthria and anarthria; H40.9 Unspecified glaucoma; E78.5 Hyperlipidemia, unspecified; E03.9 Hypothyroidism, unspecified; Z85.3 Personal history of malignant neoplasm of breast; Z85.46 Personal history of malignant neoplasm of prostate
CPT/HCPCS: 92507-GN; 92523-GN; 92526-GN; 97110-GO; 97110-GP; 97112-GP; 97116-GP; 97140-GO; 97162-GP; 97167-GO; 97530-GO; 97530-GP; 97535-GO; J1650